=== PATIENT | male | born 1995 | race American Indian/Alaskan Native ===

== ENCOUNTER 2021-07-03 09:37 | Emergency (ER) | payer SELFPAY ==
[2021-07-03 09:49] VITALS: BP 114/93
--- NOTE | 2021-07-03 10:22 | Emergency Department Report ---
HPI - General Chief Complaint: Dental/Oral Time Seen by Provider: 07/03/21 10:12 - HPI HPI: Room 30 The patient is a 25-year-old male present with a chief complaint of toothache. Patient states he has had pain from 2 teeth on the right side of his mouth for the past 2 days. Patient has a history of broken tooth for over 1 year. Patient denies history of fever. ED Past Medical Hx - Past Medical History Previous Medical History?: No - Surgical History Past Surgical History?: No - Family History Family history: no significant - Social History Smoking Status: Never Smoker Substance Use Type: Marijuana - Medications Home Medications: Home Medications Medication Instructions Recorded Confirmed Last Taken Type HYDROcodone/APAP 5-325 [[place] 1 - 2 each PO Q6HR PRN #14 tablet 07/03/21 Unknow n Rx 5/325] Ibuprofen [Motrin 800 MG tab] 800 mg PO Q8HR PRN #20 tablet 07/03/21 Unknown Rx Penicillin V Potassium 500 mg PO Q6H #28 tablet 07/03/21 Unknown Rx ED Review of Systems ROS: Stated complaint: TOOTHACHE Other details as noted in HPI Constitutional: denies: fever Eyes: denies: eye pain ENT: dental pain Physical Exam - Physical Exam Vital Signs: Vital Signs 07/03/21 09:48 Temperature 97.9 F Pulse Rate 63 Respiratory 16 Rate Blood Pressure 114/93 [Right] O2 Sat by Pulse 99 Oximetry Physical Exam: GENERAL: The patient is well-developed well-nourished male lying on a chair not appearing to be in acute distress. [] HEENT: Normocephalic. Atraumatic. Extraocular motions are intact. Dental caries present in tooth #2, there is a hole present in tooth #30. No gingival erythema or edema appreciated. Normal phonation. Patient handling secretions well NECK: Supple. Trachea midline CHEST/LUNGS:There is no respiratory distress noted. SKIN: There is no rash. There is no edema. There is no diaphoresis. NEURO: The patient is awake, alert, and oriented. The patient is cooperative. The patient has no focal neurologic deficits. The patient has normal speech. GCS 15 MUSCULOSKELETAL: There is no evidence of acute injury. ED Course Vital Signs 07/03/21 09:48 Temperature 97.9 F Pulse Rate 63 Respiratory 16 Rate Blood Pressure 114/93 [Right] O2 Sat by Pulse 99 Oximetry ED Medical Decision Making - Differential Diagnosis Toothache Critical care attestation.: If time is entered above; I have spent that time in minutes in the direct care of this critically ill patient, excluding procedure time. ED Disposition Clinical Impression: Toothache Disposition: HOME / SELF CARE / HOMELESS Is pt being admited?: No Does the pt Need Aspirin: No Condition: Stable Additional Instructions: Return to the emergency department should you develop worsening symptoms, inability to tolerate food or liquids, high fever or any other concerns Prescriptions: Ibuprofen [Motrin 800 MG tab] 800 mg PO Q8HR PRN #20 tablet PRN Reason: Pain, Moderate (4-6) HYDROcodone/APAP 5-325 [[place] 5/325] 1 - 2 each PO Q6HR PRN #14 tablet PRN Reason: Pain Penicillin V Potassium 500 mg PO Q6H #28 tablet Referrals: PRIMARY CARE, [Primary Care Provider] - 3-5 Days [facility] [Outside] - 3-5 Days Time of Disposition: 10:26
== END 2021-07-03 10:35 | disposition home or self-care (01) ==
LOC: ED 09:37
DX: K08.89 Other specified disorders of teeth and supporting structures (principal); Z79.899 Other long term (current) drug therapy
CPT/HCPCS: 99281

== ENCOUNTER 2021-10-22 14:28 | Emergency (ER) | payer MEDICAID ==
--- NOTE | 2021-10-22 15:47 | Emergency Department Report ---
ED General Adult HPI - General Chief complaint: Nausea/Vomiting/Diarrhea Stated complaint: THREW UP BLOOD Time Seen by Provider: 10/22/21 15:39 Source: patient, RN notes reviewed Mode of arrival: Ambulatory Limitations: No Limitations - History of Present Illness Initial comments: During the history and physical examination, I am chaperoned by SHIELA BARONE The patient is a 26-year-old gentleman who presents to the ER today with a complaint of diffuse abdominal pain, with nausea, and vomiting/hematemesis The symptoms started simultaneously. The abdominal pain is diffuse, but predominantly right lower quadrant. He reports that starting around 11:00 this morning, he vomited bright red liquid, 2 or 3 times, followed by orange liquid. He denies testicular pain, and bright red blood per rectum. He does not take systemic anticoagulation. He denies fevers. Abdominal pain is sharp and increases with palpation. It decreases with rest and position -: Gradual, hour(s) Location: abdomen Consistency: constant Improves with: rest Worsens with: movement - Related Data Previous Rx's Medication Instructions Recorded Last Taken Type Penicillin V Potassium 500 mg PO Q6H #28 tablet 07/03/21 Unknown Rx Acetaminophen [Acetaminophen 8 650 mg PO Q6HR PRN #30 tab 10/22/21 Unknown Rx Hour] Metoclopramide [Reglan] 10 mg PO Q6HR PRN #30 tablet 10/22/21 Unknown Rx Pantoprazole [Protonix TAB] 20 mg PO QDAY #30 tab 10/22/21 Unknown Rx Promethazine [Phenergan SUPPOS] 50 mg AR Q6H PRN #20 10/22/21 Unknown Rx Allergies Allergy/AdvReac Type Severity Reaction Status Date / Time No Known Allergies Allergy Verified 10/22/21 15:29 ED Review of Systems ROS: Stated complaint: THREW UP BLOOD Other details as noted in HPI Constitutional: malaise. denies: fever Eyes: denies: eye discharge ENT: denies: epistaxis Respiratory: denies: cough Cardiovascular: denies: chest pain Gastrointestinal: abdominal pain, nausea, vomiting, hematemesis. denies: diarrhea, melena, hematochezia Genitourinary: denies: dysuria, testicular pain Musculoskeletal: denies: back pain Neurological: weakness Psychiatric: anxiety Hematological/Lymphatic: denies: easy bleeding ED Past Medical Hx - Past Medical History Previous Medical History?: No - Surgical History Past Surgical History?: No - Social History Smoking Status: Never Smoker Substance Use Type: Marijuana - Medications Home Medications: Home Medications Medication Instructions Recorded Confirmed Last Taken Type Penicillin V Potassium 500 mg PO Q6H #28 tablet 07/03/21 Unknown Rx Acetaminophen [Acetaminophen 8 650 mg PO Q6HR PRN #30 tab 10/22/21 Unknown Rx Hour] Metoclopramide [Reglan] 10 mg PO Q6HR PRN #30 tablet 10/22/21 Unknown Rx Pantoprazole [Protonix TAB] 20 mg PO QDAY #30 tab 10/22/21 Unknown Rx Promethazine [Phenergan SUPPOS] 50 mg AR Q6H PRN #20 10/22/21 Unknown Rx ED Physical Exam - General Limitations: No Limitations General appearance: alert, in distress - Head Head exam: Present: atraumatic, normocephalic - Eye Eye exam: Present: normal appearance, EOMI. Absent: nystagmus - ENT ENT exam: Present: normal exam, normal orophraynx, mucous membranes moist, normal external ear exam - Neck Neck exam: Present: normal inspection, full ROM. Absent: tenderness, meningismus - Respiratory Respiratory exam: Present: normal lung sounds bilaterally. Absent: respiratory distress, wheezes, rales, rhonchi, stridor, accessory muscle use, decreased breath sounds - Cardiovascular Cardiovascular Exam: Present: regular rate, normal rhythm, normal heart sounds. Absent: bradycardia, tachycardia, irregular rhythm, systolic murmur, diastolic murmur, rubs, gallop - GI/Abdominal GI/Abdominal exam: Present: soft, tenderness, guarding. Absent: distended, rebound, rigid, pulsatile mass - Rectal Rectal exam: Present: normal inspection, normal rectal tone, heme (-) stool, other (Chaperoned by SHIELA BARONE). Absent: black stool, bloody stool - exam: Present: normal inspection, other (Chaperoned by SHIELA BARONE). Absent: testicular tenderness External exam: Present: normal external exam, other (There is normal testicular lie. There is normal cremasteric reflex. There is no testicular tenderness. There is no testicular swelling) - Extremities Exam Extremities exam: Present: normal inspection, full ROM, other (2+ pulses noted in the bilateral upper and lower extremities. There is no palpable cord. negative Homans sign. Muscular compartments are soft. The pelvis is stable.). Absent: pedal edema, calf tenderness - Back Exam Back exam: Present: normal inspection. Absent: tenderness, CVA tenderness (R), CVA tenderness (L), paraspinal tenderness, vertebral tenderness - Neurological Exam Neurological exam: Present: alert, oriented X3, other (No facial droop. Tongue midline. Extraocular movements intact bilaterally. Facial sensation intact to light touch in V1, V2, V3 distribution bilaterally. 5 and a 5 strength in 4 extremities. Sensation intact to light touch in 4 extremities.). Absent: motor sensory deficit - Psychiatric Psychiatric exam: Present: anxious - Skin Skin exam: Present: warm, dry, intact, normal color. Absent: rash ED Course Vital Signs 10/22/21 10/22/21 10/22/21 15:27 17:54 19:22 Temperature 98.0 F Pulse Rate 62 Respiratory 16 16 Rate Blood Pressure 149/85 Blood Pressure [Right] O2 Sat by Pulse 99 100 Oximetry O2 Sat by Pulse 99 Oximetry [ Digit-Finger] 10/22/21 19:51 Temperature 98.1 F Pulse Rate 65 Respiratory 16 Rate Blood Pressure Blood Pressure 137/88 [Right] O2 Sat by Pulse 99 Oximetry O2 Sat by Pulse Oximetry [ Digit-Finger] - Reevaluation(s) Reevaluation #1: 10/22/21 17:00 Differential diagnosis, including but not limited to: Colitis, diverticulitis, appendicitis, renal colic, inflammatory bowel disease, Praveena-Choi tear Biliary colic Assessment and plan: 26-year-old gentleman with diffuse abdominal pain, nausea and vomiting, possible hematemesis, no bright red blood per rectum, no systemic anticoagulation, normal exam with diffuse abdominal pain, suspicious for GI pathology. We will treat the patient's symptoms aggressively and supportively. Obtain appropriate laboratory studies and x-ray of the chest. Reassess after initial data points. Discussed this with the patient. He is agreeable to the plan of care. 10/22/21 19:13 Patient seen and examined multiple times. His laboratory studies are unremarkable. He felt much improved after initial therapies. No active vo miting. X-ray negative. Chest x-ray negative. CT scan abdomen pelvis negative. However, abdominal pain now returning. Positive nausea with no vomiting. Additional history obtained. Patient reports chronic recreational marijuana consumption. Highly suspect cannabinoid hyperemesis syndrome. P atient endorses relief with hot baths and hot showers. Patient advised to discontinue marijuana consumption. Counseled on the natural history of cannabinoid hyperemesis syndrome. UA, UDS pending. He is clinically sober at this time. 10/22/21 19:55 Feeling much improved. Drinking water. Urinalysis negative for infectious pathology. UDS appreciated. Return precautions reviewed. All questions answered. No active vomiting. Vital signs stable - Pulse Oximetry Interpretation Digit-Finger Initial Pulse Oximetry Readin O2 Sat by Pulse Oximetry: 99 Actions Taken: none ED Medical Decision Making - Lab Data Result diagrams: 10/22/21 16:42 10/22/21 16:42 Vital Signs 10/22/21 10/22/21 15:27 17:05 Temperature 98.0 F Pulse Rate 62 Respiratory 16 Rate Blood Pressure 149/85 O2 Sat by Pulse 99 Oximetry O2 Sat by Pulse 99 Oximetry [ Digit-Finger] - Radiology Data Radiology results: pending, report reviewed, image reviewed Chest x-ray negative for acute finding CHEST 1 VIEW INDICATION / CLINICAL INFORMATION: Hematemesis with abdominal pain. COMPARISON: None available. FINDINGS: SUPPORT DEVICES: None. HEART / MEDIASTINUM: No significant abnormality. LUNGS / PLEURA: No significant pulmonary or pleural abnormality. No pneumothorax. ADDITIONAL FINDINGS: No significant additional findings. IMPRESSION: 1. No acute findings. Signer Name: Mark Leija MD Signed: 10/22/2021 3:47 PM Workstation Name: [id number] CT ABDOMEN AND PELVIS WITH IV CONTRAST INDICATION: Acute abdominal pain. COMPARISON: None available. TECHNIQUE: All CT scans at this facility use dose modulation, automated exposure control, iterative reconstruction or weight based dosing, when appropriate, to reduce radiation dose to as low as reasonably achievable. FINDINGS: Lung Bases: No significant abnormality. Skeletal System: No acute abnormality. ABDOMEN: Liver: No significant abnormality. Gallbladder: No significant abnormality. Bile Ducts: No significant abnormality. Adrenals: No significant abnormality. Right Kidney: No significant abnormality. Left Kidney: No significant abnormality. Pancreas: No significant abnormality. Spleen: No significant abnormality. Upper GI tract: No significant abnormality. Lymph Nodes: No significant adenopathy. Aorta: No significant abnormality. Additional Findings: No significant abnormality. PELVIS: Colon: No significant abnormality. Urinary Bladder and Distal Ureters: No significant abnormality. Appendix: No significant abnormality. Lymph Nodes: No significant adenopathy. Additional Findings: None. IMPRESSION: 1. No acute process in the abdomen or pelvis. Signer Name: Eric Montoya MD Signed: 10/22/2021 5:42 PM Workstation Name: [id number] Critical care attestation.: If time is entered above; I have spent that time in minutes in the direct care of this critically ill patient, excluding procedure time. ED Disposition Clinical Impression: Acute abdominal pain, Nausea and vomiting, Marijuana use Disposition: HOME / SELF CARE / HOMELESS Is pt being admited?: No Does the pt Need Aspirin: No Condition: Good Additional Instructions: As we discussed, we suspect that patient has cannabinoid hyperemesis syndrome. Treatment is to discontinue marijuana consumption. Marijuana is fat-soluble, and may remain in human tissues for 4 to 6 weeks after last episode of marijuana consumption. Patient may take a hot bath or hot shower as often as as needed f or physical pain relief, and may also rub hot sauce or Tabasco sauce on anterior abdominal wall to assist with pain control. Avoid consumption of Motrin, ibuprofen, Naprosyn, Aleve, marijuana, and alcohol products. Take the prescribed pain medication, nausea medication as needed and directed, use the Phenergan suppository only for intractable nausea or vomiting. We do recommend follow-up with a journeyman mechanic within the next 2 weeks. Recommend follow- up with a primary care doctor within the next month. Please return to the emergency room right away with new pain, worsened pain, migration of pain, projectile vomiting, change in mental status, confusion, inability tolerate liquid feeds, new, worsened or different symptoms not present on the initial emergency room evaluation Prescriptions: Acetaminophen [Acetaminophen 8 Hour] 650 mg PO Q6HR PRN #30 tab PRN Reason: Pain , Severe (7-10) Promethazine [Phenergan SUPPOS] 50 mg AR Q6H PRN #20 PRN Reason: Nausea Pantoprazole [Protonix TAB] 20 mg PO QDAY #30 tab Metoclopramide [Reglan] 10 mg PO Q6HR PRN #30 tablet PRN Reason: Nausea Referrals: [facility] [Provider Group] - 3-5 Days [facility] [Provider Group] - 3-5 Days Forms: Work/School Release Form(ED)
[2021-10-22] MEDS ORDERED: ONDANSETRON 4 MG/2 ML INJ IV ONE (16:26)
[2021-10-22] MEDS ORDERED: SODIUM CHLORIDE 0.9% 1000 ML 1,000 ML IV ONE (16:26)
[2021-10-22] MEDS ORDERED: HYDROmorphone 1 MG/1 ML INJ IV ONE ×2 (16:26→19:08)
[2021-10-22] MEDS ORDERED: PANTOPRAZOLE 40 MG INJ IV ONE (16:27)
--- NOTE | 2021-10-22 16:51 | XRay Report ---
CHEST 1 VIEW INDICATION / CLINICAL INFORMATION: Hematemesis with abdominal pain. COMPARISON: None available. FINDINGS: SUPPORT DEVICES: None. HEART / MEDIASTINUM: No significant abnormality. LUNGS / PLEURA: No significant pulmonary or pleural abnormality. No pneumothorax. ADDITIONAL FINDINGS: No significant additional findings. IMPRESSION: 1. No acute findings. Signer Name: Mark Leija MD Signed: 10/22/2021 4:47 PM Workstation Name: [id number]
[2021-10-22 17:51] LABS: Basophils % (Auto) 0.1 % (0.0-1.8); Eosinophils % (Auto) 0.2 % (0.0-4.3); Hematocrit 44.4 % (35.5-45.6); Hemoglobin 15.1 gm/dl (11.8-15.2); Lymphocytes # (Auto) 0.8 K/mm3 (1.2-5.4); Mean Corpuscular HGB Conc 34 % (32-34); Mean Corpuscular Volume 86 fl (84-94); Monocytes # (Auto) 0.4 K/mm3 (0.0-0.8); Monocytes % (Auto) 5.9 % (0.0-7.3); Platelet Count 249 K/mm3 (140-440); Red Blood Count 5.14 M/mm3 (3.65-5.03); Red Cell Distribution Width 14.1 % (13.2-15.2)
[2021-10-22 17:54] LABS: Alanine Aminotransferase 27 units/L (7-56); Albumin 4.6 g/dL (3.9-5); BUN/Creatinine Ratio 9; Blood Urea Nitrogen 8 mg/dL (9-20); Calcium 9.1 mg/dL (8.4-10.2); Hemolysis Index 7; INR 0.99 (0.87-1.13)
[2021-10-22 18:07] LABS: Bilirubin,Direct < 0.2 mg/dL (0-0.2)
--- NOTE | 2021-10-22 18:47 | Cat Scan Report ---
CT ABDOMEN AND PELVIS WITH IV CONTRAST INDICATION: Acute abdominal pain. COMPARISON: None available. TECHNIQUE: All CT scans at this facility use dose modulation, automated exposure control, iterative reconstructi on or weight based dosing, when appropriate, to reduce radiation dose to as low as reasonably achieva ble. FINDINGS: Lung Bases: No significant abnormality. Skeletal System: No acute abnormality. ABDOMEN: Liver: No significant abnormality. Gallbladder: No significant abnormality. Bile Ducts: No significant abnormality. Adrenals: No significant abnormality. Right Kidney: No significant abnormality. Left Kidney: No significant abnormality. Pancreas: No significant abnormality. Spleen: No significant abnormality. Upper GI tract: No significant abnormality. Lymph Nodes: No significant adenopathy. Aorta: No significant abnormality. Additional Findings: No significant abnormality. PELVIS: Colon: No significant abnormality. Urinary Bladder and Distal Ureters: No significant abnormality. Appendix: No significant abnormality. Lymph Nodes: No significant adenopathy. Additional Findings: None. IMPRESSION: 1. No acute process in the abdomen or pelvis. Signer Name: Eric Montoya MD Signed: 10/22/2021 6:42 PM Workstation Name: [id number]
[2021-10-22] MEDS ORDERED: METOCLOPRAMIDE 10 MG/2 ML INJ IV ONE (19:08)
[2021-10-22 19:23] LABS: Bilirubin,Urine NEG (Negative); Blood,Urine NEG (Negative); Color,Urine Yellow (Yellow); RBC,Urine < 1.0 /HPF (0.0-6.0); Urobilinogen,Urine < 2.0 mg/dL (<2.0)
[2021-10-22 19:34] LABS: Amphetamine Screen,Urine Negative; Benzodiazepines Screen,Urine Negative; Cocaine Screen,Urine Negative; Methadone Screen,Urine Negative; Opiate Screen,Urine Negative
[2021-10-22 19:50] LABS: Cannabinoid Screen,Urine Positive
[2021-10-22 22:35] VITALS: BP 136/86
== END 2021-10-22 22:42 | disposition home or self-care (01) ==
LOC: ED 14:28
DX: R10.0 Acute abdomen (principal); R11.2 Nausea with vomiting, unspecified; F12.90 Cannabis use, unspecified, uncomplicated; Z79.899 Other long term (current) drug therapy
CPT/HCPCS: 36415; 71045; 74177; 80048; 80076; 80307; 81001; 82270; 83690; 85025; 85610; 86850; 86900; 86901; 96361; 96374; 96375; 96376; 99285; C9113; J1170; J2405; J2765; J7030; Q9967; Q0162